=== PATIENT | male | born 1980 | race Caucasian/White ===

== ENCOUNTER 2022-08-26 15:46 | Emergency (ER) | payer MEDICAID, SELFPAY ==
--- NOTE | 2022-08-26 15:47 | ECG_ITS ---
Measurements Intervals [place] Rate: 93 P: 48 NC: 140 QRS: -55 QRSD: 90 T: 42 QT: 336 QTc: 419 Interpretive Statements SINUS RHYTHM LEFT ANTERIOR FASCICULAR BLOCK BASELINE ARTIFACT- I, II ABNORMAL ECG NO PREVIOUS ECG AVAILABLE FOR COMPARISON Electronically Signed On 08-26-2022 16:05:22 CDT by Santos Em D.O.
[2022-08-26 15:49] VITALS: BP 118/86; PULSE 93; RESP 18; TEMP 36.7; O2SAT 100
[2022-08-26 16:20] VITALS: PULSE 90; RESP 17
[2022-08-26] MEDS: LEVALBUTEROL NEB 1.25 MG/3 ML INHALATION (16:20)
[2022-08-26] MEDS: IPRATROPIUM BR 0.02% INH SOLN 0.5 MG/2.5 ML VIAL INHALATION (16:20)
[2022-08-26 16:34] VITALS: PULSE 94; RESP 14
--- NOTE | 2022-08-26 17:12 | ED_ITS ---
HPI - SOB/Dyspnea General Chief Complaint: Shortness of Breath/Dyspnea Stated Complaint: asthma History of Present Illness HPI Narrative: Patient is a 42-year-old male who presents to the ER with shortness of breath. Reports history of asthma. Shortness of breath began today. No fevers or chills or sweats. Numerous reports patient is homeless and is trying to travel [place]. Patient has no additional complaints. Review of Systems Constitutional: Constitutional: Denies chills and Denies fever(s) ENT: Denies nasal congestion and Denies sore throat Cardiovascular: Cardiovascular: Denies chest pain, Denies rapid heart rate and Denies radiating jaw, neck or arm pain Respiratory: Respiratory: Denies cough, Reports dyspnea and Denies wheezing Gastrointestinal: Gastrointestinal: Denies abdominal pain, Denies nausea and Denies vomiting PMFSH Past Medical History Medical History (Updated 08/26/22 @ 18:55 by Dennis Wick MD) Asthma Surgical History Surgical History (Updated 08/26/22 @ 18:55 by Dennis Wick MD) No history of previous surgery Exam Narrative: GENERAL: Well-appearing, well-nourished, and in no acute distress. HEAD: Normocephalic, atraumatic. ENT: Mucous membranes moist. CHEST: Clear to auscultation. No respiratory distress. HEART: Regular rate and rhythm. Normal peripheral pulses. ABDOMEN: Soft, nontender, nondistended. EXTREMITIES: Normal range of motion. No edema. SKIN: Warm, dry, no rash. NEURO: Alert and oriented x3. PSYCH: Normal mood and affect. Course Course Emergency Course: Patient received nebulizer treatment. This was given to them for symptoms even though he had no audible wheezing. Lung sounds clear to auscultation again after nebulizer treatment. Patient satting 100% on room air with no respiratory distress. He is eating a meal tray. He is asking if we have any additional backpacks that he can put the belongings of his bag into since he feels like he has a tear to one of his bags. Stated I do not believe that we do but he could be provided a plastic sac potentially. Vital Signs Vital signs: Vital Signs Temperature 98.1 F 08/26/22 15:49 Pulse Rate 93 08/26/22 15:49 Respiratory Rate 18 08/26/22 15:49 Blood Pressure 118/86 08/26/22 15:49 Pulse Oximetry 100 08/26/22 15:49 Oxygen Delivery Room Air 08/26/22 15:49 Temperature 98.1 F 08/26/22 15:49 Pulse Rate 94 08/26/22 16:34 Respiratory Rate 14 08/26/22 16:34 Blood Pressure 118/86 08/26/22 15:49 Pulse Oximetry 100 08/26/22 15:49 Oxygen Delivery Room Air 08/26/22 15:49 Discharge Plan Discharge Clinical Impression: Dyspnea Patient Disposition: Home, Self-Care Condition: Stable Instructions: Dyspnea (ED) Additional Instructions: Return the ER if you have worsening shortness of breath, you have fever over 100.4 ?F, you develop chest pain, you have additional concerns. Follow-up/Referrals: PHYSICIAN NOT ON STAFF,NONSTAFF [Primary Care Provider] - 1 Week
== END 2022-08-26 17:29 | disposition home or self-care (01) ==
PROVIDERS: Emergency Provider Emergency Medicine
DX: R06.00 Dyspnea, unspecified (principal); J45.909 Unspecified asthma, uncomplicated; I44.4 Left anterior fascicular block
CPT/HCPCS: 93005; 94640; 99283